=== PATIENT | male | born 1995 | race Caucasian/White ===

== ENCOUNTER 2017-11-14 18:41 | Emergency (ER) | payer BC ==
--- NOTE | 2017-11-14 19:23 | Emergency Department Record ---
History of Present Illness - General Chief complaint: ENT Stated complaint: MUFFELED HEARING RT EAR Time Seen by Provider: 11/14/17 19:19 Source: Patient Mode of Arrival: Ambulatory Limitations: No limitations - History of Present Illness Initial comments: 22 yo male presents to ED for evaluation of mild ear discomfort for the past 5 days, attempted to use a q-tip today that resulted in "muffled hearing" to the right ear. Patient denies pain with insertion of the q-tip, denies drainage from the right ear. Patient denies dental pain symptoms. Patient denies health problems at his baseline. MD complaint: Ear pain Onset/Timin -: Days(s) Location: R ear Severity: Moderate Consistency: Constant Improves with: None Worsens with: None - Related Data Allergies Allergy/AdvReac Type Severity Reaction Status Date / Time Penicillins Allergy ANAPHYLAXIS Unverified 10/07/17 10:25 Sulfa (Sulfonamide Allergy PT UNSURE Verified 11/14/17 19:21 Antibiotics) OF REACTION Review of Systems Constitutional: Denies: Chills, Fever, Malaise, Night sweats Eyes: Denies: Eye discharge, Eye pain ENT: Reports: Ear pain. Denies: Congestion, Epistaxis Respiratory: Denies: Cough, Dyspnea Cardiovascular: Denies: Chest pain, Dyspnea on exertion Endocrine: Denies: Fatigue, Heat or cold intolerance Gastrointestinal: Denies: Abdominal pain, Nausea, Vomiting Genitourinary: Denies: Incontinence, Retention Musculoskeletal: Denies: Arthralgia, Back pain, Gout, Joint swelling Skin: Denies: Bruising, Change in color Neurological: Denies: Abnormal gait, Confusion, Headache, Seizure Psychiatric: Denies: Anxiety Hematological/Lymphatic: Denies: Anemia, Blood Clots Physical Exam - General General Appearance: Alert, Oriented x3, Cooperative, Mild distress Limitations: No limitations - Head Head exam: Atraumatic, Normocephalic, Normal inspection Head exam detail: negative: Abrasion, Contusion, Celeste's sign, General tenderness, Hematoma, Laceration - Eye Eye exam: Normal appearance. negative: Conjunctival injection, Periorbital swelling, Periorbital tenderness, Scleral icterus - ENT Ear exam: Other (Cerumen obsurring the right TM). negative: Auricular hematoma , Auricular trauma, External canal tenderness Mouth exam: negative: Drooling, Laceration, Tongue elevation Teeth exam: negative: Dental caries, Dental tenderness # - Neck Neck exam: Normal inspection. negative: Meningismus, Tenderness - Respiratory Respiratory exam: Normal lung sounds bilaterally. negative: Rales, Respiratory distress, Rhonchi, Stridor - Cardiovascular Cardiovascular Exam: Regular rate, Normal rhythm, Normal heart sounds - GI/Abdominal GI/Abdominal exam: Soft. negative: Rebound, Rigid, Tenderness - Rectal Rectal exam: Deferred - exam: Deferred - Extremities Extremities exam: Normal inspection. negative: Calf tenderness, Pedal edema, Tenderness - Back Back exam: Denies: CVA tenderness (R), CVA tenderness (L) - Neurological Neurological exam: Alert, Normal gait, Oriented X3 - Psychiatric Psychiatric exam: Normal affect, Normal mood - Skin Skin exam: Normal color. negative: Abrasion Type of lesion: negative: abrasion Course - Reevaluation(s) Reevaluation #1: 11/14/17 19:36 TM was re-evaluated, mild erythema to the canal, TM appears normal Will prescribe Polymyxin ear drops as directed for possible otitis externa. Disposition Disposition: Discharge Clinical Impression: Impacted cerumen, right ear Otitis externa Qualifiers: Otitis externa type: unspecified type Chronicity: acute Laterality: right Qualified Code(s): H60.501 - Unspecified acute noninfective otitis externa, right ear Disposition: Home, Self-Care Condition: (2) Stable Instructions: Cerumen Impaction (ED) Additional Instructions: Return to ED if your symptoms worsen or if you have any concerns. Follow-up with your family doctor in 3-5 days as directed. Polymyxin ear drops as directed. Forms: Patient Portal Access Time of Disposition: 19:39 Quality - Quality Measures Quality Measures: N/A - Blood Pressure Screening Does Patient Have Any of the Following: No Blood Pressure Classification: Pre-Hypertensive BP Reading Systolic Measurement: 126 Diastolic Measurement: 84 Screening for High Blood Pressure: < Pre-Hypertensive BP, F/U Documented > [ [id number]] Pre-Hypertensive Follow-up Interventions: Referral to alternative/primary care provider.
[2017-11-14] MEDS ORDERED: NEOMYCIN/POLYMYXIN B SULF/HC 10ML BTL OT ONE (19:38)
== END 2017-11-14 19:55 | disposition home or self-care (01) ==
LOC: ER 18:41
DX: H65.01 Acute serous otitis media, right ear (principal); H61.21 Impacted cerumen, right ear
CPT/HCPCS: 99282